=== PATIENT | female | born 1955 | race Caucasian/White ===

== ENCOUNTER 2016-09-02 07:08 | Day surgery (SDC) | payer OTHER ==
[~2016-09-02 07:08] MED LIST: FENTANYL CITRATE INJ/PF 100 MCG/2 ML AMPUL INJ PRN; METHYLPREDNISOLONE ACETATE INJ 80 MG/1 ML VIAL INJ PRN; MIDAZOLAM HCL INJ 5 MG/1 ML VIAL INJ PRN
[2016-09-02] MEDS ORDERED: METHYLPREDNISOLONE ACETATE INJ 80 MG/1 ML VIAL ONE (08:03)
[2016-09-02] MEDS ORDERED: MIDAZOLAM HCL INJ 5 MG/1 ML VIAL ONE (08:48)
[2016-09-02] MEDS ORDERED: FENTANYL CITRATE INJ/PF 100 MCG/2 ML AMPUL ONE (08:49)
[2016-09-02] MEDS ORDERED: SODIUM BICARBONATE 8.4% INJ 50 MEQ/50 ML DISP.SYRIN ONE (09:15)
--- NOTE | 2016-09-02 09:48 | OPERATIVE REPORT E ---
Operative Report NAME: RIANA DELAROSA : 1955 AGE: 60Y DATE OF SURGERY: 09/02/2016 ROOM: PREOPERATIVE DIAGNOSIS: POSTLAMINECTOMY PAIN SYNDROME WITH LUMBAR RADICULOPATHY. POSTOPERATIVE DIAGNOSIS: POSTLAMINECTOMY SYNDROME WITH LUMBAR RADICULOPATHY. OPERATION: Bilateral fluoroscopic guided transforaminal epidural steroid injection bilaterally at L4-L5 levels with conscious sedation. SURGEON: AYANNA JOHNS M.D. ANESTHESIA: 1 mg of Versed and 50 mcg of fentanyl. COMPLICATIONS: None. PROCEDURE: After obtaining informed consent and advising the patient of the risks and benefits including paralysis, allergic reaction, infection, bleeding and , she was taken to the fluoroscopic procedure suite and placed comfortably in the prone position. Monitors were applied. Oxygen was administered. Conscious sedation was then given and with 1 mL of Versed and 1 mL of fentanyl after prepping with chlorhexidine and evaluating with fluoroscopy, beginning on the right side, a suitable entrance site for the right paramedian approach to the L4-L5 transforaminal space was identified. The subcutaneous tissue and skin were anesthetized with 1% lidocaine with bicarbonate. A 22-gauge spinal needle was advanced into the foramen without difficulty under AP and lateral views. Contrast was then injected in the AP view with 0.75 mL of Isovue M180 which showed appropriate spread into the epidural space. This was again visualized in the AP and lateral views. A total of 1.5 mL of solution was then injected including a mixture of 0.5 mL of normal saline and 1 mL of Depo-Medrol 80 mg. Once the right side was completed, the procedure was then performed on the left side as previously described. She tolerated this procedure well. All needles and instrumentation were removed. The region was cleansed. Sterile dressings were applied. She remained neurologically and hemodynamically intact. She was then taken to the PACU for further postprocedural care. DICTATING PHYSICIAN: AYANNA JOHNS M.D. [id number] PHY#: [id number] ID: [id number] JOB#: [id number] ACCT: [id number] cc:AYANNA JOHNS M.D. >
[2016-09-02 11:55] VITALS: BP 100/72
== END 2016-09-02 10:59 | disposition home or self-care (01) ==
LOC: CCL 07:08
PROVIDERS: ATTEND Student in an Organized Health Care Education/Training Program
PROC: 3E0U33Z Introduction of Anti-inflammatory into Joints, Percutaneous Approach (ICD-10-PCS; principal; 2016-09-02)
DX: M96.1 Postlaminectomy syndrome, not elsewhere classified (principal); M54.16 Radiculopathy, lumbar region; G89.21 Chronic pain due to trauma; M05.79 Rheumatoid arthritis with rheumatoid factor of multiple sites without organ or systems involvement; M54.17 Radiculopathy, lumbosacral region; B02.29 Other postherpetic nervous system involvement; F06.8 Other specified mental disorders due to known physiological condition; F32.9 Major depressive disorder, single episode, unspecified; F45.42 Pain disorder with related psychological factors; K59.00 Constipation, unspecified; M46.1 Sacroiliitis, not elsewhere classified; M51.37 Other intervertebral disc degeneration, lumbosacral region; M54.5 Low back pain; M79.7 Fibromyalgia; R52 Pain, unspecified; R00.2 Palpitations; K21.9 Gastro-esophageal reflux disease without esophagitis; M81.0 Age-related osteoporosis without current pathological fracture; T75.3XXD Motion sickness, subsequent encounter; Z79.1 Long term (current) use of non-steroidal anti-inflammatories (NSAID); Z79.891 Long term (current) use of opiate analgesic; Z79.899 Other long term (current) drug therapy
CPT/HCPCS: 62322; 77001; Q9966; J3010; J1040; J3490 ×2

== ENCOUNTER 2016-11-17 06:22 | Day surgery (SDC) | payer OTHER ==
[2016-11-17] MEDS ORDERED: SODIUM BICARBONATE 8.4% INJ 50 MEQ/50 ML DISP.SYRIN ONE (07:24)
[2016-11-17] MEDS ORDERED: MIDAZOLAM HCL INJ 5 MG/1 ML VIAL ONE (08:10)
[2016-11-17] MEDS ORDERED: FENTANYL CITRATE INJ/PF 100 MCG/2 ML AMPUL ONE (08:10)
[2016-11-17] MEDS ORDERED: METHYLPREDNISOLONE ACETATE INJ 80 MG/1 ML VIAL ONE (08:27)
--- NOTE | 2016-11-17 09:58 | OPERATIVE REPORT E ---
Operative Report NAME: RIANA DELAROSA : 1955 AGE: 61Y DATE OF SURGERY: 11/17/2016 ROOM: PREOPERATIVE DIAGNOSIS: Post-laminectomy pain syndrome with lumbar radiculopathy. POSTOPERATIVE DIAGNOSIS: Post-laminectomy syndrome with lumbar radiculopathy. OPERATION: Bilateral fluoroscopic-guided transforaminal epidural steroid injection bilaterally at L4-L5 levels with conscious sedation. SURGEON: AYANNA JOHNS M.D. ANESTHESIA: 1.5 mg of Versed and 50 mcg of fentanyl in divided doses. COMPLICATIONS: None. PROCEDURE: After obtaining informed consent and advising the patient of the risks and benefits, including paralysis, allergic reaction, infection, bleeding, and , she was taken to the fluoroscopic procedure room and placed comfortably in the prone position. Monitors were applied. Oxygen was administered. Conscious sedation was then given with a total of 1.5 mg of Versed and 50 mcg of fentanyl. After prepping with chlorhexidine and evaluating fluoroscopy, beginning on the right side, a suitable entry site for the right paramedial approach, the L4-L5 transforaminal space was identified. Subcutaneous tissue and skin were anesthetized with 1% lidocaine with bicarbonate. A 22-gauge 3.5 inch spinal needle was advanced into the foramen without difficulty under AP and lateral views. Contrast was then injected in the AP view with 1 mL of Isovue M180, which showed appropriate spread into the epidural space and down the nerve root. This was again visualized in the AP and lateral views. A total of 1.5 mL of solution was then injected with a mixture of 2 mL of normal saline and 80 mg of Depo Medrol. Once the right side was completed, the procedure was then performed on the left side as previously described. She tolerated the procedure well. All needles and instruments were removed. The region was cleansed. Sterile dressings were applied. She remained neurologically and hemodynamically intact. She was taken to the PACU for further postoperative care. DICTATING PHYSICIAN: AYANNA JOHSN M.D. [id number] PHY#: [id number] ID: [id number] JOB#: [id number] ACCT: [id number] cc:AYANNA JOHNS M.D. >
[2016-11-17 10:53] VITALS: BP 81/49
== END 2016-11-17 10:10 | disposition home or self-care (01) ==
LOC: CCL 06:22
PROVIDERS: ATTEND Student in an Organized Health Care Education/Training Program
PROC: 3E0S33Z Introduction of Anti-inflammatory into Epidural Space, Percutaneous Approach (ICD-10-PCS; principal; 2016-11-17)
DX: M54.16 Radiculopathy, lumbar region (principal); K21.9 Gastro-esophageal reflux disease without esophagitis; E11.9 Type 2 diabetes mellitus without complications; M81.0 Age-related osteoporosis without current pathological fracture; R00.2 Palpitations; Z79.899 Other long term (current) drug therapy
CPT/HCPCS: 82962; 62322; 77001; Q9966; J3010; J1040; J3490 ×2

== ENCOUNTER 2018-05-23 16:53 | Emergency (ER) | payer OTHER ==
--- NOTE | 2018-05-23 17:28 | RADIOLOGY REPORT (SQ) ---
EXAM DESCRIPTION: ANKLE RIGHT COMPLETE COMPLETED DATE/TIME: 05/23/2018 5:17 pm REASON FOR STUDY: Fell off bed and injured foot and ankle Wednesday COMPARISON: None. NUMBER OF VIEWS: Three views. TECHNIQUE: AP, lateral, and oblique radiographic images acquired of the right ankle. LIMITATIONS: None. FINDINGS: MINERALIZATION: Normal. BONES: No acute fracture or dislocation. No worrisome bone lesions. JOINTS: No effusions. SOFT TISSUES: No soft tissue swelling. No foreign body. OTHER: No other significant finding. IMPRESSION: NEGATIVE STUDY OF THE RIGHT ANKLE. NO RADIOGRAPHIC EVIDENCE OF ACUTE INJURY. TECHNICAL DOCUMENTATION: JOB ID: [id number] [employer]- All Rights Reserved Reading location - IP/workstation name: [email or web address]
--- NOTE | 2018-05-23 17:37 | RADIOLOGY REPORT (SQ) ---
EXAM DESCRIPTION: FOOT RIGHT COMPLETE COMPLETED DATE/TIME: 05/23/2018 5:17 pm REASON FOR STUDY: Fell off bed and injured foot and ankle Wednesday COMPARISON: None. NUMBER OF VIEWS: Three views. TECHNIQUE: AP, lateral and oblique radiographic images acquired of the right foot. LIMITATIONS: None. FINDINGS: MINERALIZATION: Normal. BONES: There is cortical irregularity involving the distal ends of the 3rd and 4th metatarsals which I cannot exclude as fractures. There is some bony deformity of the distal end of the 5th metatarsal presumably related to previous trauma. No other evidence for fracture is seen JOINTS: Hallux valgus is identified. SOFT TISSUES: No soft tissue swelling. No foreign body. OTHER: No other significant finding. IMPRESSION: Bony deformity involving the distal ends of the 3rd and 4th metatarsals which I cannot e xclude as fractures. Clinical correlation is recommended. Other findings as noted above TECHNICAL DOCUMENTATION: JOB ID: [id number] [employer]- All Rights Reserved Reading location - IP/workstation name: [email or web address]
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
[2018-05-23 18:26] VITALS: BP 144/97
== END 2018-05-23 18:27 | disposition home or self-care (01) ==
LOC: ER 16:53
DX: S92.301S Fracture of unspecified metatarsal bone(s), right foot, sequela (principal); M79.671 Pain in right foot; W06.XXXS Fall from bed, sequela; I25.10 Atherosclerotic heart disease of native coronary artery without angina pectoris
CPT/HCPCS: 99283

== ENCOUNTER → 2018-11-01 | Outpatient (CLI) | payer OTHER ==
--- NOTE | 2018-11-04 15:58 | XCELERA REPORT ---
[address] [address] Lower Extremity Arterial Evaluation Name: RIANA DELAROSA Age: 63 yrs Gender: Female : 1955 Patient Status: Outpatient Patient Location: [facility] Study Date: 11/01/2018 11:29 AM Procedure: A color flow and duplex scan of the lower extremity arteries was performed bilaterally with velocity and waveform anaylsis. Ankle brachial indicies performed. Reason For Study: PVD Ordering Physician: LUTHER JONES Performed By: Savannah Yancey Measurements and Calculations Right Left PROFESSOR OF ENVIRONMENTAL SCIENCE PSV 159.5 146.0 cm/sec Prox PFA PSV -117.5 -126.4cm/sec Prox SFA PSV 132.0 124.3 cm/sec Mid SFA PSV -180.7 -161.5cm/sec Dist SFA PSV -152.2 -126.5cm/sec Prox Pop A PSV 75.0 67.2 cm/sec Dist DORINA PSV 94.3 74.2 cm/sec Dist TRAFFIC COUNTER PSV 111.9 114.7 cm/sec Thomas Pedis PSV 76.6 26.7 cm/sec Right Side Arterial Evaluation Normal velocity and triphasic waveforms noted from the Common Femoral artery to the infrageniculate vessels . Ankle Brachial index 1.18. PPG's are normal, with multiphasic waveforms,no attenuation. Left Side Arterial Evaluation Normal velocity and triphasic waveforms noted from the Common Femoral artery to the infrageniculate vessels . Ankle Brachial index 1.27. PPG's are normal, with multiphasic waveforms,no attenuation. Interpretation Summary No hemodynamically significant lesions in the bilateral lower extremities, on duplex imaging, at rest. LAURA' and PPG's are normal, supportive of normal arterial supply. : LUTHER JONES > Peter Richard
== END ==
LOC: SP 10:46
PROVIDERS: ATTEND Podiatrist Foot & Ankle Surgery
DX: I73.9 Peripheral vascular disease, unspecified (principal)
CPT/HCPCS: 93925